=== PATIENT | male | born 1995 | race American Indian/Alaskan Native ===

== ENCOUNTER 2019-03-04 04:56 | Emergency (ER) | payer MEDICAID ==
[2019-03-04 05:06] VITALS: BP 135/90
[2019-03-04] MEDS ORDERED: IBUPROFEN PO ONE (05:28)
[2019-03-04] MEDS ORDERED: CLEOCIN PO ONE (05:28)
[2019-03-04] MEDS ORDERED: DECADRON IM ONE (05:28)
--- NOTE | 2019-03-04 05:34 | Emergency Department Report ---
ED ENT HPI - General Chief complaint: Sore Throat Stated complaint: THROAT PAIN Time Seen by Provider: 03/04/19 05:28 Source: patient, EMS Mode of arrival: Ambulatory Limitations: No Limitations - History of Present Illness Initial comments: Pt is s 23 y/o aam HIV advise adherent with tx regimen, who presents for sore throat x 3 days denies fever or chills endorse dysphagia, pain is 5/10 sharp exacerbated by swallowing there is no ear pain no headache no stridor no wheezing. MD complaint: sore throat Onset/Timin -: days(s) Location: throat Severity: moderate Severity scale (0 -10): 5 Quality: burning, sharp Consistency: intermittent Improves with: none Worsens with: swallowing Associated Symptoms: pain with swallowing, sore throat - Related Data Previous Rx's Medication Instructions Recorded Last Taken Type Benzocaine/Mentho [Cepacol X 1 each MM Q2H PRN #3 packet 03/04/19 Unknown Rx Strength] Clindamycin [Clindamycin CAP] 300 mg PO Q8H 10 Days #30 cap 03/04/19 Unknown Rx Ibuprofen [Motrin 800 MG tab] 800 mg PO Q8HR PRN #30 tablet 03/04/19 Unknown Rx dexAMETHasone [Decadron] 4 mg PO Q12H 2 Days #4 tablet 03/04/19 Unknown Rx ED Dental HPI - General Chief complaint: Sore Throat Stated complaint: THROAT PAIN Time Seen by Provider: 03/04/19 05:28 Source: patient, EMS Mode of arrival: Ambulatory Limitations: No Limitations - Related Data Previous Rx's Medication Instructions Recorded Last Taken Type Benzocaine/Mentho [Cepacol X 1 each MM Q2H PRN #3 packet 03/04/19 Unknown Rx Strength] Clindamycin [Clindamycin CAP] 300 mg PO Q8H 10 Days #30 cap 03/04/19 Unknown Rx Ibuprofen [Motrin 800 MG tab] 800 mg PO Q8HR PRN #30 tablet 03/04/19 Unknown Rx dexAMETHasone [Decadron] 4 mg PO Q12H 2 Days #4 tablet 03/04/19 Unknown Rx ED Review of Systems ROS: Stated complaint: THROAT PAIN Other details as noted in HPI Constitutional: denies: chills, fever Eyes: denies: eye pain, eye discharge, vision change ENT: throat pain. denies: ear pain Respiratory: denies: cough, shortness of breath, wheezing Cardiovascular: denies: chest pain, palpitations Endocrine: no symptoms reported Gastrointestinal: denies: abdominal pain, nausea, diarrhea Genitourinary: denies: urgency, dysuria Musculoskeletal: denies: back pain, joint swelling, arthralgia Skin: denies: rash, lesions Neurological: denies: headache, weakness, paresthesias Psychiatric: denies: anxiety, depression Hematological/Lymphatic: denies: easy bleeding, easy bruising ED Past Medical Hx - Past Medical History Previous Medical History?: Yes Hx HIV: Yes - Surgical History Past Surgical History?: Yes Additional Surgical History: Testicular torsion - Social History Smoking Status: Current Every Day Smoker Substance Use Type: Alcohol, Marijuana - Medications Home Medications: Home Medications Medication Instructions Recorded Confirmed Last Taken Type Benzocaine/Mentho [Cepacol X 1 each MM Q2H PRN #3 packet 03/04/19 Unknown Rx Strength] Clindamycin [Clindamycin CAP] 300 mg PO Q8H 10 Days #30 cap 03/04/19 Unknown Rx Ibuprofen [Motrin 800 MG tab] 800 mg PO Q8HR PRN #30 tablet 03/04/19 Unknown Rx dexAMETHasone [Decadron] 4 mg PO Q12H 2 Days #4 tablet 03/04/19 Unknown Rx ED Physical Exam - General Limitations: No Limitations General appearance: alert, in no apparent distress - Head Head exam: Present: atraumatic, normocephalic - Eye Eye exam: Present: normal appearance, PERRL, EOMI Pupils: Present: normal accommodation - ENT ENT exam: Present: mucous membranes moist, TM's normal bilaterally, normal external ear exam - Expanded ENT Exam Expanded Ear exam: Present: normal external inspection Throat exam: Positive: tonsillar erythema, tonsillomegaly, tonsillar exudate, other (uvula midline white exudate no stridor no peritosilar abscess no stridor no wheezing ). Negative: R peritonsillar mass, L peritonsillar mass - Neck Neck exam: Present: normal inspection, full ROM, lymphadenopathy. Absent: tenderness, meningismus, thyromegaly - Expanded Neck Exam Expanded Neck exam: Absent: midline deformity, anterior neck swelling, thyroid mass, carotid bruit, tracheal deviation - Respiratory Respiratory exam: Present: normal lung sounds bilaterally. Absent: respiratory distress, wheezes, rales, rhonchi, stridor, chest wall tenderness - Cardiovascular Cardiovascular Exam: Present: regular rate, normal rhythm, normal heart sounds. Absent: systolic murmur, diastolic murmur, rubs, gallop - GI/Abdominal GI/Abdominal exam: Present: soft, normal bowel sounds. Absent: distended, tenderness, bruit, hernia - Rectal Rectal exam: Present: deferred - Extremities Exam Extremities exam: Present: normal inspection, full ROM. Absent: tenderness - Back Exam Back exam: Present: normal inspection, full ROM. Absent: tenderness, CVA tenderness (R), CVA tenderness (L), rash noted - Neurological Exam Neurological exam: Present: alert, oriented X3, normal gait - Psychiatric Psychiatric exam: Present: normal affect, normal mood - Skin Skin exam: Present: warm ED Course Vital Signs 03/04/19 04:59 Temperature 98.7 F Pulse Rate 108 H Respiratory 18 Rate Blood Pressure 135/90 O2 Sat by Pulse 98 Oximetry ED Medical Decision Making - Medical Decision Making Pharyngitis plan, decadron, clindamycin, ibuprofen, cepacol follow up with pcp in 2-3 days return to emergency if symptoms worsen. Critical care attestation.: If time is entered above; I have spent that time in minutes in the direct care of this critically ill patient, excluding procedure time. ED Disposition Clinical Impression: Pharyngitis Qualifiers: Pharyngitis/tonsillitis etiology: unspecified etiology Qualified Code(s): J02.9 - Acute pharyngitis, unspecified Disposition: TO HOME OR SELFCARE Is pt being admited?: No Does the pt Need Aspirin: No Condition: Stable Instructions: Pharyngitis (ED) Prescriptions: Benzocaine/Mentho [Cepacol X Strength] 1 each MM Q2H PRN #3 packet PRN Reason: Throat Pain Clindamycin [Clindamycin CAP] 300 mg PO Q8H 10 Days #30 cap dexAMETHasone [Decadron] 4 mg PO Q12H 2 Days #4 tablet Ibuprofen [Motrin 800 MG tab] 800 mg PO Q8HR PRN #30 tablet PRN Reason: pain Referrals: PRIMARY CARE, [Primary Care Provider] - 3-5 Days Forms: Work/School Release Form(ED) Time of Disposition: 05:42
== END 2019-03-04 05:55 | disposition home or self-care (01) ==
LOC: ED 04:56
DX: J02.9 Acute pharyngitis, unspecified (principal); F17.200 Nicotine dependence, unspecified, uncomplicated; F12.10 Cannabis abuse, uncomplicated; Z21 Asymptomatic human immunodeficiency virus [HIV] infection status; Z79.1 Long term (current) use of non-steroidal anti-inflammatories (NSAID); Z79.899 Other long term (current) drug therapy
CPT/HCPCS: 96372; 99283; J1100

== ENCOUNTER 2021-01-13 20:16 | Emergency (ER) | payer MEDICAID ==
[2021-01-13 20:29] VITALS: BP 134/89
[2021-01-13] MEDS ORDERED: ONDANSETRON 4 MG/2 ML INJ IV ONE (20:46)
[2021-01-13] MEDS ORDERED: SODIUM CHLORIDE 0.9% 1000 ML 1,000 ML IV ONE (20:46)
[2021-01-13 21:16] LABS: Basophils % (Auto) 0.4 % (0.0-1.8); Eosinophils # (Auto) 0.1 K/mm3 (0.0-0.4); Eosinophils % (Auto) 0.6 % (0.0-4.3); Hematocrit 47.3 % (35.5-45.6); Hemoglobin 16.4 gm/dl (11.8-15.2); Lymphocytes # (Auto) 2.7 K/mm3 (1.2-5.4); Lymphocytes % (Auto) 31.6 % (13.4-35.0); Mean Corpuscular HGB Conc 35 % (32-34); Mean Corpuscular Volume 88 fl (84-94); Monocytes # (Auto) 0.7 K/mm3 (0.0-0.8); Monocytes % (Auto) 7.8 % (0.0-7.3); Platelet Count 279 K/mm3 (140-440); Red Blood Count 5.39 M/mm3 (3.65-5.03); Red Cell Distribution Width 14.4 % (13.2-15.2)
[2021-01-13 21:24] LABS: BUN/Creatinine Ratio 10; Blood Urea Nitrogen 8 mg/dL (9-20); Calcium 9.5 mg/dL (8.4-10.2); Hemolysis Index 6
--- NOTE | 2021-01-13 22:05 | Cat Scan Report ---
CT ABDOMEN AND PELVIS WITHOUT CONTRAST INDICATION / CLINICAL INFORMATION: Abdominal Pain. Mid umbilical pain. 2 weeks of diarrhea and blood in urine. TECHNIQUE: Axial CT images were obtained through the abdomen and pelvis without IV contrast. All CT scans at this location are performed using CT dose reduction for ALARA by means of automated exposure control. COMPARISON: None available. FINDINGS: LOWER CHEST: No significant abnormality. LIVER: No significant abnormality. GALLBLADDER: No significant abnormality. BILE DUCTS: No significant abnormality. PANCREAS: No significant abnormality. SPLEEN: No significant abnormality. ADRENALS: No significant abnormality. RIGHT KIDNEY / URETER: No significant abnormality. LEFT KIDNEY / URETER: Small nonobstructing stone in the mid kidney. No ureteral stone or hydronephros is. STOMACH / SMALL BOWEL: No significant abnormality. COLON: No significant abnormality. APPENDIX: No significant abnormality. PERITONEUM: No free fluid. No free air. No fluid collection. LYMPH NODES: No significant adenopathy. AORTA / ARTERIES: No significant abnormality. IVC / VEINS: No significant abnormality. URINARY BLADDER: No significant abnormality. REPRODUCTIVE ORGANS: No significant abnormality. ADDITIONAL FINDINGS: None. SKELETAL SYSTEM: No significant abnormality. IMPRESSION: 1. No inflammatory process or bowel obstruction. 2. Small nonobstructing left intrarenal stone. No ureteral stones or hydronephrosis. Signer Name: Claudia Hogan MD Signed: 01/13/2021 10:01 PM Workstation Name: [id number]
--- NOTE | 2021-01-13 23:04 | Emergency Department Report ---
ED Male HPI - General Chief complaint: Abdominal Pain Stated complaint: BLOOD IN URINE Source: patient Mode of arrival: Ambulatory Limitations: No Limitations - History of Present Illness Initial comments: 25-year-old obese -Mac[place] male with no significant past medical history presents emergency department complaining of having a 2-week history of off-and-on diarrhea abdominal etiology and a 1 to 2-day history of blood in urine at the end of the urinary stream associated with some sharp pain at the end of his urination as well. No fever, chills, sweats. No nausea, no vomiting, no chest pain, no palpitations, no rash appreciated reports no testicular pain no traumatic injury to his knowledge. MD Complaint: testicle pain, dysuria Radiation: none Severity: mild, moderate Quality: dull Consistency: constant Improves with: none Worsens with: urination blood in urine. denies: discharge, swelling, urinary retention, nausea/vomiting, incontinence - Related Data Previous Rx's Medication Instructions Recorded Last Taken Type Benzocaine/Mentho [Cepacol X 1 each MM Q2H PRN #3 packet 03/04/19 Unknown Rx Strength] Clindamycin [Clindamycin CAP] 300 mg PO Q8H 10 Days #30 cap 03/04/19 Unknown Rx Ibuprofen [Motrin 800 MG tab] 800 mg PO Q8HR PRN #30 tablet 03/04/19 Unknown Rx dexAMETHasone [Decadron] 4 mg PO Q12H 2 Days #4 tablet 03/04/19 Unknown Rx Ciprofloxacin HCl 500 mg PO BID #10 tablet 01/13/21 Unknown Rx Phenazopyridine [Pyridium] 200 mg PO PC #9 tablet 01/13/21 Unknown Rx Allergies Allergy/AdvReac Type Severity Reaction Status Date / Time No Known Allergies Allergy Verified 01/13/21 23:03 ED Review of Systems ROS: Stated complaint: BLOOD IN URINE Other details as noted in HPI Comment: All other systems reviewed and negative ED Past Medical Hx - Past Medical History Hx HIV: Yes - Surgical History Additional Surgical History: Testicular torsion - Social History Smoking Status: Unknown if ever smoked Substance Use Type: None - Medications Home Medications: Home Medications Medication Instructions Recorded Confirmed Last Taken Type Benzocaine/Mentho [Cepacol X 1 each MM Q2H PRN #3 packet 03/04/19 Unknown Rx Strength] Clindamycin [Clindamycin CAP] 300 mg PO Q8H 10 Days #30 cap 03/04/19 Unknown Rx Ibuprofen [Motrin 800 MG tab] 800 mg PO Q8HR PRN #30 tablet 03/04/19 Unknown Rx dexAMETHasone [Decadron] 4 mg PO Q12H 2 Days #4 tablet 03/04/19 Unknown Rx Ciprofloxacin HCl 500 mg PO BID #10 tablet 01/13/21 Unknown Rx Phenazopyridine [Pyridium] 200 mg PO PC #9 tablet 01/13/21 Unknown Rx ED Physical Exam - General Limitations: No Limitations General appearance: alert, in no apparent distress - Head Head exam: Present: atraumatic, normocephalic - Eye Eye exam: Present: normal appearance, PERRL, EOMI Pupils: Present: normal accommodation - ENT ENT exam: Present: normal exam, normal orophraynx, mucous membranes moist, TM's normal bilaterally - Neck Neck exam: Present: normal inspection, full ROM - Respiratory Respiratory exam: Present: normal lung sounds bilaterally. Absent: respiratory distress, wheezes, rales, chest wall tenderness, accessory muscle use - Cardiovascular Cardiovascular Exam: Present: regular rate, normal rhythm. Absent: systolic murmur, diastolic murmur, rubs, gallop - GI/Abdominal GI/Abdominal exam: Present: soft, tenderness (Tenderness with deep palpation to the lower abdomen mild in nature. No Rovsing, no [place] Coreas, no no rebound no [place] sign), normal bowel sounds - Rectal Rectal exam: Present: deferred - Extremities Exam Extremities exam: Present: normal inspection - Back Exam Back exam: Present: normal inspection. Absent: CVA tenderness (R), CVA tenderness (L) - Neurological Exam Neurological exam: Present: alert, oriented X3 - Psychiatric Psychiatric exam: Present: normal affect, normal mood - Skin Skin exam: Present: warm, dry, intact, normal color. Absent: rash ED Course Vital Signs 01/13/21 20:25 Temperature 98.8 F Pulse Rate 110 H Respiratory 18 Rate Blood Pressure 134/89 O2 Sat by Pulse 96 Oximetry ED Medical Decision Making - Lab Data Result diagrams: 01/13/21 20:57 01/13/21 20:57 - Radiology Data Radiology results: report reviewed [facility] [address] [place] [address] Cat Scan Report Signed Patient: KELLIE LY MR#: [id number] : 1995 Acct:[id number] Age/Sex: 25 / M ADM Date: 01/13/21 Loc: ED Attending Dr: Ordering Physician: GERARDO DONNELLY MD Date of Service: 01/13/21 Procedure(s): CT abdomen pelvis wo con Accession Number(s): [id number] cc: GERARDO DONNELLY MD CT ABDOMEN AND PELVIS WITHOUT CONTRAST INDICATION / CLINICAL INFORMATION: Abdominal Pain. Mid umbilical pain. 2 weeks of diarrhea and blood in urine. TECHNIQUE: Axial CT images were obtained through the abdomen and pelvis without IV contrast. All CT scans at this location are performed using CT dose reduction for ALARA by means of automated exposure control. COMPARISON: None available. FINDINGS: LOWER CHEST: No significant abnormality. LIVER: No significant abnormality. GALLBLADDER: No significant abnormality. BILE DUCTS: No significant abnormality. PANCREAS: No significant abnormality. SPLEEN: No significant abnormality. ADRENALS: No significant abnormality. RIGHT KIDNEY / URETER: No significant abnormality. LEFT KIDNEY / URETER: Small nonobstructing stone in the mid kidney. No ureteral stone or hydronephrosis. STOMACH / SMALL BOWEL: No significant abnormality. COLON: No significant abnormality. APPENDIX: No significant abnormality. PERITONEUM: No free fluid. No free air. No fluid collection. LYMPH NODES: No significant adenopathy. AORTA / ARTERIES: No significant abnormality. IVC / VEINS: No significant abnormality. URINARY BLADDER: No significant abnormality. REPRODUCTIVE ORGANS: No significant abnormality. ADDITIONAL FINDINGS: None. SKELETAL SYSTEM: No significant abnormality. IMPRESSION: 1. No inflammatory process or bowel obstruction. 2. Small nonobstructing left intrarenal stone. No ureteral stones or hydronephrosis. Signer Name: Claudia Hogan MD Signed: 01/13/2021 10:01 PM Workstation Name: [id number] Transcribed By: ARTIE Dictated By: Álvaro Hogan MD Electronically Authenticated By: Álvaro Hogan MD Signed Date/Time: 01/13/212200 DD/ 56 TD/TT: - Medical Decision Making Problem 1 diarrhea 25-year-old obese -Mac[place] male presents to emergency department complaining of diarrhea was likely a viral enteritis. Doubt acute bacterial diarrhea. Considered but think unlikely partial SBO, appendicitis, dive rticulitis, other intra-abdominal infection, low suspicion for secondary cause of diarrhea such as hyperadrenergic state, a pheochromocytoma, adrenal crisis, hypothyroidism or sepsis. Doubt antibiotic associated diarrhea as he does not report taking antibiotics in the past. Currently his plan is oral rehydration since she is tolerating oral medications and and oral fluids. Also discharged with antidiarrhea medications and a short course of antibiotics due to the duration of his diarrhea Problem 2 hematuria/dysuria 25-year-old patient presents emerged department complaining of near end void dysuria and hematuria. Symptoms are consistent with an occult and u passing kidney stone although there is a intrarenal stone present ncomplicated cystitis. No systemic symptoms. Not septic, patient is well-appearing low suspicion for acute polynephritis given the lack of fever or systemic features, this this CT scan did not show a differential includes simple cystitis, pyelonephritis,, epid idymitis. Unable to send a urinalysis patient does not wish to urinate due to the reported discomfort. Advised him to follow-up with the health department, hip provider for full STD evaluation and treatment when necessary. Critical care attestation.: If time is entered above; I have spent that time in minutes in the direct care of this critically ill patient, excluding procedure time. ED Disposition Clinical Impression: Dysuria, Kidney stone, Diarrhea Disposition: - TO HOME OR SELFCARE Is pt being admited?: No Does the pt Need Aspirin: No Condition: Undetermined Instructions: Diarrhea, Adult, Dysuria, Food Choices to Help Relieve Diarrhea, Adult, Kidney Stones, [id number] Additional Instructions: 25-year-old male seen emergency department today for dysuria though unable to provide a urine sample due to your preoperative preference. CT scan did show a stone in your kidney you will feel some discomfort once the stone is vacated from the kidney on its journey down to the bladder. Will be provided with some analgesic medication to help with the discomfort associated with your your dysuria in regard to the diarrhea please be sure to stay hydrated as you not having any nausea vomiting. Return to emergency department should you experience any worsening uncontrolled pain, inability to tolerate fluids by mouth, difficulty breathing, fevers in excess of 100.4, recurrent vomiting or any other concerning symptoms Referrals: PRIMARY CAREMD [Primary Care Provider] - 3-5 Days [facility] [Provider Group] - 3-5 Days [facility] [Outside] - 3-5 Days ARY SAWANT MD [Staff Physician] - 3-5 Days
== END 2021-01-13 23:42 | disposition home or self-care (01) ==
LOC: ED 20:16
DX: N20.0 Calculus of kidney (principal); R19.7 Diarrhea, unspecified; R30.0 Dysuria; Z79.899 Other long term (current) drug therapy; Z98.890 Other specified postprocedural states; Z21 Asymptomatic human immunodeficiency virus [HIV] infection status
CPT/HCPCS: 36415; 74176; 80048; 85025; J2405; J7030